=== PATIENT | female | born 1940 | race Two or more races ===

== ENCOUNTER 2021-09-04 20:20 | Inpatient (IN) | payer OTHER ==
[~2021-09-04] VITALS: Ht 149.9 cm; Wt 64.4 kg
[2021-09-04] MEDS ORDERED: COZAAR100 MG PO (20:48)
[2021-09-04] MEDS ORDERED: AMLODIPINE-OLM1 EAC2 (20:48)
[2021-09-29] MEDS ORDERED: NORVASC2.5 M1 PO (11:51)
[2021-09-29] MEDS ORDERED: PANTOPRAZOLE SO40 MG PO (11:51)
== END 2021-09-29 13:40 | disposition home or self-care (01) | DRG 438 ==
LOC: ER 20:20 → MEDJ 09-05 15:16 → SEC-K 09-05 15:16 → MEDJ 09-05 17:56
PROVIDERS: ADMIT Internal Medicine; ATTEND Internal Medicine
PROC: BW40ZZZ Ultrasonography of Abdomen (ICD-10-PCS; 2021-09-05)
PROC: 3E0F7SF Introduction of Other Gas into Respiratory Tract, Via Natural or Artificial Opening (ICD-10-PCS; 2021-09-05)
PROC: 0FJD8ZZ Inspection of Pancreatic Duct, Via Natural or Artificial Opening Endoscopic (ICD-10-PCS; 2021-09-06)
PROC: 02HV33Z Insertion of Infusion Device into Superior Vena Cava, Percutaneous Approach (ICD-10-PCS; 2021-09-06)
PROC: 4A033R1 Measurement of Arterial Saturation, Peripheral, Percutaneous Approach (ICD-10-PCS; 2021-09-09)
PROC: 3E0F7GC Introduction of Other Therapeutic Substance into Respiratory Tract, Via Natural or Artificial Opening (ICD-10-PCS; 2021-09-09)
PROC: 0F9430Z Drainage of Gallbladder with Drainage Device, Percutaneous Approach (ICD-10-PCS; principal; 2021-09-11)
PROC: 0F9030Z Drainage of Liver with Drainage Device, Percutaneous Approach (ICD-10-PCS; 2021-09-11)
PROC: BW40ZZZ Ultrasonography of Abdomen (ICD-10-PCS; 2021-09-20)
PROC: BW2110Z Computerized Tomography (CT Scan) of Abdomen and Pelvis using Low Osmolar Contrast, Unenhanced and Enhanced (ICD-10-PCS; 2021-09-20)
PROC: B54MZZZ Ultrasonography of Right Upper Extremity Veins (ICD-10-PCS; 2021-09-21)
PROC: 02PY33Z Removal of Infusion Device from Great Vessel, Percutaneous Approach (ICD-10-PCS; 2021-09-25)
PROC: 05H633Z Insertion of Infusion Device into Left Subclavian Vein, Percutaneous Approach (ICD-10-PCS; 2021-09-25)
PROC: BW30Y0Z Magnetic Resonance Imaging (MRI) of Abdomen using Other Contrast, Unenhanced and Enhanced (ICD-10-PCS; 2021-09-26)
PROC: BW28ZZZ Computerized Tomography (CT Scan) of Head (ICD-10-PCS; 2021-09-26)
DX: K85.10 Biliary acute pancreatitis without necrosis or infection (principal); K75.0 Abscess of liver; K80.00 Calculus of gallbladder with acute cholecystitis without obstruction; N17.8 Other acute kidney failure; B37.0 Candidal stomatitis; J90 Pleural effusion, not elsewhere classified; J98.11 Atelectasis; E80.6 Other disorders of bilirubin metabolism; E86.0 Dehydration; D72.828 Other elevated white blood cell count; N76.0 Acute vaginitis; K12.39 Other oral mucositis (ulcerative); D75.838 Other thrombocytosis; K29.60 Other gastritis without bleeding; B95.2 Enterococcus as the cause of diseases classified elsewhere; Z20.822 Contact with and (suspected) exposure to COVID-19; R29.818 Other symptoms and signs involving the nervous system
CPT/HCPCS: 74185